=== PATIENT | female | born 1980 | race Caucasian/White ===

== ENCOUNTER 2018-11-04 10:13 | Emergency (ER) | payer OTHER ==
[~2018-11-04] VITALS: Ht 170.2 cm; Wt 69.8 kg
--- NOTE | 2018-11-04 10:58 | PHYS DOC ---
Past History Past Medical History: GERD, Hypothyroid, Other Additional Past Medical Histor: Shalini syndrome, diabetes insipidus Past Surgical History: Hysterectomy, Other Additional Past Surgical Histo: pituitary resection Smoking: Non-smoker Alcohol Use: None Drug Use: None Adult General Chief Complaint Chief Complaint: DIZZY/LIGHT HEADED HPI HPI Patient is a 38-year-old female presents with feeling weak, lightheaded, dizzy with standing up, generalized fatigue and malaise. 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 She had been on supplemental steroids up until April 2018. Approximately a week ago started feeling the fatigue and symptoms of adrenal insufficiency again and yesterday took 2-1/2 mg of hydrocortisone twice which did improve her symptoms. She recently moved here from [place]. 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 Symptoms are moderate in intensity. She denies any chest pain or palpitations. She reports her desmopressin is not working to help with her diabetes insipidus as well.[] Review of Systems Review of Systems Constitutional: Denies fever or chills [] Eyes: Denies change in visual acuity, redness, or eye pain [] HENT: Denies nasal congestion or sore throat [] Respiratory: Denies cough or shortness of breath [] Cardiovascular: No chest pain or palpitations[] GI: Denies abdominal pain, nausea, vomiting, bloody stools or diarrhea [] : Denies dysuria or hematuria [] Musculoskeletal: Denies back pain or joint pain [] Integument: Denies rash or skin lesions [] Neurologic: Denies headache, focal weakness or sensory changes [] Endocrine: Denies polyuria or polydipsia [] All other systems were reviewed and found to be within normal limits, except as documented in this note. Allergies Allergies Allergies Coded Allergies Type Severity Reaction Last Updated Verified hydromorphone Allergy Unknown Rash 11/04/18 Yes Physical Exam Physical Exam Constitutional: Well developed, well nourished, no acute distress, non-toxic appearance. [] HENT: Normocephalic, atraumatic, bilateral external ears normal, oropharynx moist, no oral exudates, nose normal. [] Eyes: PERRLA, EOMI, conjunctiva normal, no discharge. [] Neck: Normal range of motion, no tenderness, supple, no stridor. [] Cardiovascular:Heart rate regular rhythm, no murmur [] Lungs & Thorax: Bilateral breath sounds clear to auscultation [] Abdomen: Bowel sounds normal, soft, no tenderness, no masses, no pulsatile masses. [] Skin: Warm, dry, no erythema, no rash. Slightly darkened skin.[] Back: No tenderness, no CVA tenderness. [] Extremities: No tenderness, no cyanosis, no clubbing, ROM intact, no edema. [] Neurologic: Alert and oriented X 3, normal motor function, normal sensory function, no focal deficits noted. [] Psychologic: Affect normal, judgement normal, mood normal. [] Current Patient Data Vital Signs Vital Signs Date Time Temp Pulse Resp B/P (MAP) Pulse Ox O2 Delivery O2 Flow Rate FiO2 11/04/18 10:38 98.1 68 16 100 Room Air 11/04/18 10:32 120/83 (95) EKG EKG [] Radiology/Procedures Radiology/Procedures [] Course & Med Decision Making Course & Med Decision Making Pertinent Labs and Imaging studies reviewed. (See chart for details) ED course: Patient arrived, was placed in bed, and tolerated exam well. IV access was established and she was given IV fluids. She was additionally given IV steroids. As the return of the laboratory studies, these were discussed with the patient. She reported feeling better. Consultation was made with hospitalist service regarding appropriate dosing for outpatient steroid therapy. All questions were answered. She was discharged in improved condition. Medical decision making: Patient appears to have adrenal insufficiency is result of surgery for her Byers syndrome. This may been triggered by recent move from a more temperate environment in [place] to [place] where the temperatures lately have been in the 90s to 100s. There is no evidence of significant electrolyte abnormality. No anemia. No evidence of urinary tract infection.[] Dragon Disclaimer Dragon Disclaimer This electronic medical record was generated, in whole or in part, using a voice recognition dictation system. Departure Departure: Impression: Primary Impression: Adrenal insufficiency Disposition: HOME, SELF-CARE Condition: IMPROVED Referrals: KIMBERLY MCKEON (PCP) Keep Your appointment in 2 days Patient Instructions: [address]'s Disease, Adrenal Insufficiency Additional Instructions: Keep your appointment in 2 days. Return to the ER if worsening weakness or any other concerns. Scripts Hydrocortisone (HYDROCORTISONE) 10 Mg Tablet 10 MG PO as directed for adrenal insufficiency, #90 TAB 2 tablets at 8 AM every day 1 tablet at 4 PM every day Prov: DANISH FLORES DO 11/04/18 DANISH FLORES DO Nov 04, 2018 10:58
[2018-11-04] MEDS ORDERED: IV NORMAL SALINE 1,000ML 1,000 ML IV ONE (11:00)
[2018-11-04] MEDS ORDERED: HYDROCORTISONE SOD SUCC/PF 100 MG/2 ML VIAL. IV ONE (11:15)
[2018-11-04 11:27] LABS: BASO # 0.1 x10^3/uL (0.0-0.2); BASO % 2 % (0-3); EOS # 0.2 x10^3/uL (0.0-0.7); EOS % 3 % (0-3); HEMATOCRIT 41.2 % (36.0-47.0); HEMOGLOBIN 13.9 g/dL (12.0-15.5); LYMPH # 1.9 x10^3/uL (1.0-4.8); LYMPH % 42 % (24-48); MEAN CORPUSCULAR HEMOGLOBIN 31 pg (25-35); MEAN CORPUSCULAR HGB CONC 34 g/dL (31-37); MEAN CORPUSCULAR VOLUME 93 fL (79-100); MONO # 0.4 x10^3/uL (0.0-1.1); MONO % 8 % (0-9); NEUT # 2.1 x10^3uL (1.8-7.7); NEUT % 45 % (31-73); PLATELET COUNT 283 x10^3/uL (140-400); RED BLOOD COUNT 4.43 x10^6/uL (3.50-5.40); RED CELL DISTRIBUTION WIDTH 13.7 % (11.5-14.5); WHITE BLOOD COUNT 4.6 x10^3/uL (4.0-11.0)
[2018-11-04 11:45] LABS: ALBUMIN/GLOBULIN RATIO 1.1 (1.0-1.7); CREATININE 0.9 mg/dL (0.6-1.0); GFR 70.5; POTASSIUM 3.6 mmol/L (3.5-5.1); TOTAL BILIRUBIN 0.3 mg/dL (0.2-1.0); TOTAL PROTEIN 7.6 g/dL (6.4-8.2)
[2018-11-04 11:55] LABS: CLARITY,URINE HAZY; COLOR,URINE STRAW
[2018-11-04 11:56] LABS: BACTERIA,URINE 0 /HPF (0-FEW); BILIRUBIN,URINE NEG (NEG); GLUCOSE,URINE NEG (NEG); NITRITE,URINE NEG (NEG); RBC,URINE 0 /HPF (0-2); SQUAMOUS EPITHELIAL CELL,UR FEW /LPF; UROBILINOGEN,URINE 0.2 mg/dL (0.2 mg/dL); WBC,URINE RARE /HPF (0-4)
[2018-11-04 12:57] VITALS: BP 18/82
[2018-11-04] MEDS ORDERED: HYDR10TA66 PO (13:00)
== END 2018-11-04 13:10 | disposition home or self-care (01) ==
LOC: ER 10:13
DX: E27.40 Unspecified adrenocortical insufficiency (principal); K21.9 Gastro-esophageal reflux disease without esophagitis; E03.9 Hypothyroidism, unspecified; Z88.5 Allergy status to narcotic agent
CPT/HCPCS: 36415; 80053; 81001; 84146; 84443; 85025; 96374; 99284-25; J7030

== ENCOUNTER 2020-08-11 21:52 | Emergency (ER) | payer OTHER ==
[~2020-08-11] VITALS: Ht 170.2 cm; Wt 77.2 kg
[~2020-08-11 21:52] MED LIST: HYDR-3108 PO
[2020-08-11 23:48] VITALS: BP 118/79
[2020-08-12] MEDS ORDERED: HYDR-2759 PO (00:02)
== END 2020-08-12 00:17 | disposition home or self-care (01) ==
LOC: ER 21:52
DX: N13.2 Hydronephrosis with renal and ureteral calculous obstruction (principal); K21.9 Gastro-esophageal reflux disease without esophagitis; E03.9 Hypothyroidism, unspecified; Z87.442 Personal history of urinary calculi; Z90.710 Acquired absence of both cervix and uterus; Z88.5 Allergy status to narcotic agent
CPT/HCPCS: 36415; 74176; 80053; 81001; 85025; 96361; 96374; 96375; 99285; J2270; J2405; J7030

== ENCOUNTER 2020-08-14 11:13 | Emergency (ER) | payer OTHER ==
[~2020-08-14] VITALS: Ht 170.2 cm; Wt 79.0 kg
[~2020-08-14 11:13] MED LIST changes: +HYDR-2759 PO
[2020-08-14] MEDS ORDERED: KETOROLAC 30 MG/ML VIAL. IVP ONE (12:45)
[2020-08-14] MEDS ORDERED: MORPHINE SULFATE 2 MG/ML DISP.SYRIN. IV ONE (12:45)
[2020-08-14] MEDS ORDERED: IV NORMAL SALINE 1,000ML 1,000 ML IV ONE (12:45)
[2020-08-14] MEDS ORDERED: TAMSULOSIN 0.4 MG CAP.ER.24H. PO ONE (12:45)
[2020-08-14] MEDS ORDERED: KETOROLAC 30 MG/ML VIAL. ONE (12:50)
--- NOTE | 2020-08-14 12:54 | PHYS DOC ---
Past History Past Medical History: GERD, Hypothyroid, Kidney Stones, Other Additional Past Medical Histor: Shalini syndrome, diabetes insipidus Past Surgical History: Hysterectomy, Other Additional Past Surgical Histo: pituitary resection Smoking: Non-smoker Alcohol Use: None Drug Use: None Adult General Chief Complaint Chief Complaint: FLANK PAIN HPI HPI Patient is a 39-year-old female presents to the emergency department reporting ongoing right sided flank pain. Patient is reports her pain a 10/10 when 10 pain scale. Patient states she was diagnosed with a 4 mm stone in her distal ureter on 11 August 2020. Patient states she has been taking her pain medication as directed by the ED provider she seen on 11 August. Patient states she was unable to obtain an appointment with the urology specialist until today in which her referral "finally came through "and she is waiting to hear back from urology. Patient states she has diabetes insipidus and is worried that her urine has been decreasing since the diagnosis of her stone. Patient denies any nausea, vomiting, diarrhea, chest pain, shortness of breath. Patient states she feels pressure in her pelvic floor and thinks it is related to her kidney stone. Patient states she has a bladder sling and is worried that her stone will not be able to overcome the sling. Patient denies any recent fever or chills. Review of Systems Review of Systems 14 body systems of review of systems have been reviewed. See HPI for pertinent positives and negative responses, otherwise all other systems are negative, nonpertinent or noncontributory. Current Medications Current Medications Current Medications Medications (Trade) Dose Ordered Sig/Jv Start Time Stop Time Status Last Admin Dose Admin Ketorolac Tromethamine (Toradol 30mg Vial) 30 mg 1X ONCE 08/14/20 12:45 08/14/20 12:46 UNV Morphine Sulfate (Morphine 2mg Syringe) 2 mg 1X ONCE 08/14/20 12:45 08/14/20 12:46 UNV Sodium Chloride 1,000 ml @ 1,000 mls/hr 1X ONCE 08/14/20 12:45 08/14/20 13:44 UNV Tamsulosin HCl (Flomax) 0.4 mg 1X ONCE 08/14/20 12:45 08/14/20 12:46 UNV Allergies Allergies Allergies Coded Allergies Type Severity Reaction Last Updated Verified hydromorphone Allergy Unknown Rash 11/04/18 Yes Physical Exam Physical Exam Constitutional: Well developed, well nourished, no acute distress, non-toxic appearance. 39-year-old female no apparent distress. Patient's complaint of pain exceeds patient's physical appearance. HENT: Normocephalic, atraumatic, bilateral external ears normal, oropharynx moist, no oral exudates, nose normal. Eyes: PERRLA, EOMI, conjunctiva normal, no discharge. Neck: Normal range of motion, no tenderness, supple, no stridor. Cardiovascular:Heart rate regular rhythm, no murmur Lungs & Thorax: Bilateral breath sounds clear to auscultation Abdomen: Bowel sounds normal, soft, no tenderness, no masses, no pulsatile masses. Pain right flank. No bruising or areas of ecchymosis of the abdomen appreciated. Skin: Warm, dry, no erythema, no rash. Back: No tenderness, no CVA tenderness. Extremities: No tenderness, no cyanosis, no clubbing, ROM intact, no edema. Neurologic: Alert and oriented X 3, normal motor function, normal sensory function, no focal deficits noted. Psychologic: Affect normal, judgement normal, mood normal. Current Patient Data Vital Signs Vital Signs Date Time Temp Pulse Resp B/P (MAP) Pulse Ox O2 Delivery O2 Flow Rate FiO2 08/14/20 11:20 98.5 20 152/82 (105) Room Air EKG EKG [] Radiology/Procedures Radiology/Procedures [] Heart Score C/O Chest Pain: No Risk Factors: Risk Factors: DM, Current or recent (<one month) smoker, HTN, HLP, family history of CAD, obesity. Risk Scores: Risk Factors: DM, Current or recent (<one month) smoker, HTN, HLP, family history of CAD, obesity. Course & Med Decision Making Course & Med Decision Making Pertinent Labs and Imaging studies reviewed. (See chart for details) 39-year-old female, vital signs reviewed, presents emergency department concerning ongoing right flank pain that she feels is related to her 4 mm distal ureter stone on the right. Patient's physical examination consistent with right sided kidney stone. Reviewed report from ED visit on 08/11/2020, agreed with ED provider, physical examination unchanged from her visit on 11 August, review of patient's CT abdomen pelvis showed 4 mm stone in the right distal ureter. Will order UA to rule out urinary tract infection, CBC, CMP, will order 30 mg Toradol, 2 mg of morphine IV, 1 L normal saline, 0.4 mg p.o. Flomax. Patient amenable to this plan. Patient's serum labs unremarkable, patient's urinalysis consistent with ongoing kidney stone, reevaluation of the patient, patient in no apparent distress, patient states her pain has been resolved. Discussed with patient will prescribe Flomax to take in addition to her home medication regimen. Discussed with patient to follow-up with [facility] as directed, return to ER precautions and concerns. Patient is nontoxic in appearance. Patient gave verbal understanding of discharge home instructions, Flomax medication use, follow-up with [facility], return to ER precautions or co ncerns, patient was discharged home without incident. Dragon Disclaimer Dragon Disclaimer This electronic medical record was generated, in whole or in part, using a voice recognition dictation system. Departure Departure: Impression: Primary Impression: Acute flank pain Additional Impression: Kidney stone on right side Disposition: 01 HOME / SELF CARE / HOMELESS Condition: GOOD Referrals: KIMBERLY MCKEON (PCP) Patient Instructions: Kidney Stones Additional Instructions: You are seen today for ongoing symptoms of your right-sided kidney stone. Your urine did not show any signs of infection, your blood work was unremarkable and did not show any concerning findings that require admission to the hospital. Today you were given IV Toradol 30 mg, 2 mg IV morphine, and a 0.4 mg Flomax. As we discussed I am adding Flomax to your medication regimen at home to treat this kidney stone. You should take it 30 minutes after the same meal once a day. I am giving you 8 tablets, this should be sufficient to assist you in passing this kidney stone. Please keep your appointments with the nephrology department. Return to the emergency department for worsening symptoms or other concerns. EMERGENCY DEPARTMENT GENERAL DISCHARGE INSTRUCTIONS Thank you for coming to [facility] (ED) today and trusting us with you care. We trust that you had a positivie experience in our Emergency Department. If you wish to speak to the department management, you may call the director at [phone]. YOUR FOLLOW UP INSTRUCTIONS ARE FOLLOWS: 1. Do you have a private Doctor? If you do not have a private doctor, please ask for a resource list of physicians or clinics that may be able to assist you with follow up care. 2. The Emergency Physician has interpreted your x-rays. The X-Ray specialist will also review them. If there is a change in the findings, you will be notified in 48 hours when at all possible. 3. A lab test or culture has been done, your results will be reviewed and you will be notified if you need a change in treatment. ADDITIONAL INSTRUCTIONS AND INFORMATION: 1. Your care today has been supervised by a physician who is specially trained in emergency care. Many problems require more than one evaluation for a complete diagnosis and treatment. We recommend that you schedule your follow up appointment as recommended to ensure complete treatment of you illness or injury. If you are unable to obtain follow up care and continue to have a problem, or if your condition worsens, we recommend that you return to the ED. 2. We are not able to safely determine your condition over the phone nor are we able to give sound medical advice over the phone. For these safety reasons, if you call for medical advice we will ask you to come to the ED for further evaluation. 3. If you have any questions regarding these discharge instructions please call the ED at [phone]. SAFETY INFORMATION: In the interest of safety, wellness, and injury prevention; we encourage you to wear your sealbelt, if you smoke; quite smoking, and we encourage family to use a protective helmet for bicycling and other sporting events that present an increased risk for head injury. IF YOUR SYMPTOMS WORSEN OR NEW SYMPTOMS DEVELOP, OR YOU HAVE CONCERNS ABOUT YOUR CONDITION; OR IF YOUR CONDITION WORSENS WHILE YOU ARE WAITING FOR YOUR FOLLOW UP APPOINTMENT; EITHER CONTACT YOUR PRIMARY CARE DOCTOR, THE PHYSICIAN WHOSE NAME AND NUMBER YOU WERE GIVEN, OR RETURN TO THE ED IMMEDIATELY. Scripts Tamsulosin Hcl (FLOMAX) 0.4 Mg Cap.er.24h 1 CAP PO DAILY for KIDNEY STONE, #10 CAP 0 Refills Take 1 tablet once a day 30 minutes after the same meal each day. Prov: CHELO PAVON APRN 08/14/20 Problem Qualifiers CHELO PAVON APRN Aug 14, 2020 12:54
[2020-08-14 12:58] LABS: BASO # 0.1 x10^3/uL (0.0-0.2); BASO % 1 % (0-3); EOS # 0.2 x10^3/uL (0.0-0.7); EOS % 2 % (0-3); LYMPH # 2.2 x10^3/uL (1.0-4.8); LYMPH % 21 % (24-48); MEAN CORPUSCULAR HEMOGLOBIN 31 pg (25-35); MEAN CORPUSCULAR HGB CONC 33 g/dL (31-37); MEAN CORPUSCULAR VOLUME 93 fL (79-100); MONO # 0.6 x10^3/uL (0.0-1.1); MONO % 6 % (0-9); NEUT # 7.2 x10^3uL (1.8-7.7); NEUT % 70 % (31-73); PLATELET COUNT 300 x10^3/uL (140-400); RED BLOOD COUNT 4.21 x10^6/uL (3.50-5.40); RED CELL DISTRIBUTION WIDTH 12.8 % (11.5-14.5); WHITE BLOOD COUNT 10.2 x10^3/uL (4.0-11.0)
[2020-08-14 12:59] LABS: CALCIUM 8.6 mg/dL (8.5-10.1); GFR 62.1; POTASSIUM 3.6 mmol/L (3.5-5.1)
[2020-08-14 13:05] LABS: ALBUMIN 3.3 g/dL (3.4-5.0); ALBUMIN/GLOBULIN RATIO 0.9 (1.0-1.7); TOTAL BILIRUBIN 0.1 mg/dL (0.2-1.0); TOTAL PROTEIN 6.9 g/dL (6.4-8.2)
[2020-08-14 13:40] LABS: BILIRUBIN,URINE NEG (NEG); CLARITY,URINE CLEAR; COLOR,URINE YELLOW; GLUCOSE,URINE NEG (NEG)
[2020-08-14 13:41] LABS: NITRITE,URINE NEG (NEG); RBC,URINE >40 /HPF (0-2); UROBILINOGEN,URINE 0.2 mg/dL (0.2 mg/dL)
[2020-08-14 13:42] LABS: BACTERIA,URINE 0 /HPF (0-FEW); WBC,URINE RARE /HPF (0-4)
[2020-08-14 13:43] LABS: SQUAMOUS EPITHELIAL CELL,UR FEW /LPF
[2020-08-14] MEDS ORDERED: TAMS0.4C97 PO (14:05)
[2020-08-14 14:30] VITALS: BP 114/77
== END 2020-08-14 14:28 | disposition home or self-care (01) ==
LOC: ER 11:13
DX: N20.0 Calculus of kidney (principal); K21.9 Gastro-esophageal reflux disease without esophagitis; E03.9 Hypothyroidism, unspecified; Z90.710 Acquired absence of both cervix and uterus; Z88.5 Allergy status to narcotic agent
CPT/HCPCS: 36415; 80053; 81001; 85025; 96361; 96374; 96375; 99285; J1885; J2270; J7030

== ENCOUNTER 2020-10-15 13:17 | Emergency (ER) | payer OTHER ==
[~2020-10-15] VITALS: Ht 165.1 cm; Wt 80.0 kg
[~2020-10-15 13:17] MED LIST changes: +TAMS0.4C97 PO
[2020-10-15] MEDS ORDERED: ONDANSETRON PF 4 MG/2 ML VIAL. ONE (14:05)
[2020-10-15] MEDS: ONDANSETRON PF 4 MG/2 ML VIAL. IVP ONE (14:10)
[2020-10-15] MEDS: IV NORMAL SALINE 1,000ML 1,000 ML IV ONE (14:11)
[2020-10-15 14:36] LABS: BASO % 0 % (0-3); EOS # 0.1 x10^3/uL (0.0-0.7); EOS % 1 % (0-3); HEMATOCRIT 38.6 % (36.0-47.0); LYMPH % 24 % (24-48); MEAN CORPUSCULAR HEMOGLOBIN 31 pg (25-35); MEAN CORPUSCULAR HGB CONC 34 g/dL (31-37); MEAN CORPUSCULAR VOLUME 92 fL (79-100); MONO # 0.8 x10^3/uL (0.0-1.1); MONO % 7 % (0-9); NEUT # 8.5 x10^3uL (1.8-7.7); NEUT % 68 % (31-73); PLATELET COUNT 301 x10^3/uL (140-400); RED BLOOD COUNT 4.19 x10^6/uL (3.50-5.40); RED CELL DISTRIBUTION WIDTH 13.1 % (11.5-14.5); WHITE BLOOD COUNT 12.5 x10^3/uL (4.0-11.0)
[2020-10-15 14:42] LABS: CREATININE 0.9 mg/dL (0.6-1.0); GFR 69.7; POTASSIUM 3.8 mmol/L (3.5-5.1)
[2020-10-15 14:48] LABS: ALBUMIN 3.4 g/dL (3.4-5.0); ALBUMIN/GLOBULIN RATIO 0.9 (1.0-1.7); TOTAL BILIRUBIN 0.3 mg/dL (0.2-1.0)
[2020-10-15 14:50] LABS: CLARITY,URINE BLOODY; COLOR,URINE RED
[2020-10-15 14:54] LABS: RBC,URINE TNTC /HPF (0-2)
[2020-10-15 14:56] LABS: BACTERIA,URINE MOD /HPF (0-FEW); SQUAMOUS EPITHELIAL CELL,UR FEW /LPF; YEAST,URINE PRESENT /HPF
[2020-10-15 15:31] LABS: U PREG PATIENT NEGATIVE (NEG)
[2020-10-15] MEDS ORDERED: ONDA4TAB7 PO (15:43)
[2020-10-15] MEDS ORDERED: OXYC-325 PO (15:55)
--- NOTE | 2020-10-15 15:56 | PHYS DOC ---
Past History Past Medical History: GERD, Hypothyroid, Kidney Stones, Other Additional Past Medical Histor: Shalini syndrome, diabetes insipidus (LI GRIMES APRN) Past Surgical History: Hysterectomy, Other Additional Past Surgical Histo: pituitary resection (LI GRIMES APRN) Smoking: Non-smoker Alcohol Use: None Drug Use: None (LI GRIMES APRN) General Adult EDM: Chief Complaint: ABDOMINAL PAIN HPI: HPI: Patient is a 40-year-old female comes to the ER today for intractable nausea and vomiting that started yesterday. Patient reports that she was recently hospitalized at for kidney stones. She reports that she had a 14 mm stone removed and a urinary stent placed. She had some Zofran at home and she took that yesterday which did improve her nausea and vomiting but it worsened this afternoon around 1 PM. Patient reports that she was able to eat breakfast this morning. She has vomited 70 times she could not count. She denies any blood in her vomit. She does report some right flank and right sided abdominal pain following the procedure and hematuria. She denies any additional urinary comp laints such as frequency, urgency, dysuria. She also denies fevers, diarrhea, cp, soa. (LI GRIMES APRN) Review of Systems: Review of Systems: 14 body systems of the review of systems have been reviewed. See HPI for pertinent positive and negative responses, otherwise all other systems are negative, nonpertinent or noncontributory (LI GRIMES APRN) Current Medications: Current Meds: Current Medications Medications (Trade) Dose Ordered Sig/Jv Start Time Stop Time Status Last Admin Dose Admin Fentanyl Citrate (Fentanyl 2ml Vial) 50 mcg 1X ONCE 10/15/20 15:30 10/15/20 15:31 DC 10/15/20 15:34 50 MCG Ondansetron HCl (Zofran) 4 mg STK-MED ONCE 10/15/20 14:05 10/15/20 14:06 DC Sodium Chloride 1,000 ml @ 1,000 mls/hr 1X ONCE 10/15/20 14:15 10/15/20 15:14 DC 10/15/20 14:11 1,000 MLS/HR (LI GRIMES APRN) Allergies: Allergies: Allergies Coded Allergies Type Severity Reaction Last Updated Verified hydromorphone Allergy Unknown Rash 11/04/18 Yes (LI GRIMES APRN) Physical Exam: PE: Constitutional: Well developed, well nourished, no acute distress, non-toxic appearance. [] HENT: Normocephalic, atraumatic, bilateral external ears normal, oropharynx moist, nose normal. [] Eyes: PERRL, conjunctiva normal, no discharge. [] Neck: Normal range of motion, no stridor. [] Cardiovascular:Heart rate regular rhythm, no murmur [] Lungs & Thorax: Bilateral breath sounds clear to auscultation [] Abdomen: Bowel sounds normal, abdomen is mildly distended and is tender with palpation in the right upper and lower quadrant. [] Skin: Warm, dry, no erythema, no rash. [] Back: No tenderness, positive right CVA tenderness. [] Extremities: No tenderness, no cyanosis, no clubbing, ROM intact, no edema. [] Neurologic: Alert and oriented X 3, normal motor function, normal sensory function, no focal deficits noted. [] Psychologic: Affect normal, judgement normal, mood normal. [] (LI GRIMES APRN) Current Patient Data: Labs: Laboratory Tests Test 10/15/20 14:03 10/15/20 15:21 White Blood Count 12.5 x10^3/uL Red Blood Count 4.19 x10^6/uL Hemoglobin 13.0 g/dL Hematocrit 38.6 % Mean Corpuscular Volume 92 fL Mean Corpuscular Hemoglobin 31 pg Mean Corpuscular Hemoglobin Concent 34 g/dL Red Cell Distribution Width 13.1 % Platelet Count 301 x10^3/uL Neutrophils (%) (Auto) 68 % Lymphocytes (%) (Auto) 24 % Monocytes (%) (Auto) 7 % Eosinophils (%) (Auto) 1 % Basophils (%) (Auto) 0 % Neutrophils # (Auto) 8.5 x10^3uL Lymphocytes # (Auto) 3.0 x10^3/uL Monocytes # (Auto) 0.8 x10^3/uL Eosinophils # (Auto) 0.1 x10^3/uL Basophils # (Auto) 0.0 x10^3/uL Urine Collection Type Unknown Urine Color Red Urine Clarity Bloody Urine pH Urine Specific [place] Urine Protein Urine Glucose (UA) mg/dL Urine Ketones (Stick) mg/dL Urine Blood Urine Nitrite Urine Bilirubin Urine Urobilinogen Dipstick mg/dL Urine Leukocyte Esterase Urine RBC Tntc /HPF Urine WBC 1-4 /HPF Urine Squamous Epithelial Cells Few /LPF Urine Bacteria Mod /HPF Urine Yeast Present /HPF Sodium Level 130 mmol/L Potassium Level 3.8 mmol/L Chloride Level 96 mmol/L Carbon Dioxide Level 23 mmol/L Anion Gap 11 Blood Urea Nitrogen 16 mg/dL Creatinine 0.9 mg/dL Estimated GFR (Cockcroft-Gault) 69.7 BUN/Creatinine Ratio 18 Glucose Level 96 mg/dL Calcium Level 8.0 mg/dL Total Bilirubin 0.3 mg/dL Aspartate Amino Transf (AST/SGOT) 10 U/L Alanine Aminotransferase (ALT/SGPT) 21 U/L Alkaline Phosphatase 49 U/L Troponin I Quantitative < 0.017 ng/mL Total Protein 7.0 g/dL Albumin 3.4 g/dL Albumin/Globulin Ratio 0.9 Urine Test Negative Current Medications Medications (Trade) Dose Ordered Sig/Jv Route PRN Reason Start Time Stop Time Status Last Admin Dose Admin Ondansetron HCl (Zofran) 4 mg 1X ONCE IVP 10/15/20 14:15 10/15/20 14:16 DC 10/15/20 14:10 Sodium Chloride 1,000 ml @ 1,000 mls/hr 1X ONCE IV 10/15/20 14:15 10/15/20 15:14 DC 10/15/20 14:11 Fentanyl Citrate (Fentanyl 2ml Vial) 50 mcg 1X ONCE IVP 10/15/20 14:15 10/15/20 14:16 DC 10/15/20 14:11 Ondansetron HCl (Zofran) 4 mg STK-MED ONCE .ROUTE 10/15/20 14:05 10/15/20 14:06 DC Fentanyl Citrate (Fentanyl 2ml Vial) 50 mcg 1X ONCE IVP 10/15/20 15:30 10/15/20 15:31 DC 10/15/20 15:34 Laboratory Tests Test 10/15/20 14:03 10/15/20 15:21 White Blood Count 12.5 x10^3/uL (4.0-11.0) H Red Blood Count 4.19 x10^6/uL (3.50-5.40) Hemoglobin 13.0 g/dL (12.0-15.5) Hematocrit 38.6 % (36.0-47.0) Mean Corpuscular Volume 92 fL (79-100) Mean Corpuscular Hemoglobin 31 pg (25-35) Mean Corpuscular Hemoglobin Concent 34 g/dL (31-37) Red Cell Distribution Width 13.1 % (11.5-14.5) Platelet Count 301 x10^3/uL (140-400) Neutrophils (%) (Auto) 68 % (31-73) Lymphocytes (%) (Auto) 24 % (24-48) Monocytes (%) (Auto) 7 % (0-9) Eosinophils (%) (Auto) 1 % (0-3) Basophils (%) (Auto) 0 % (0-3) Neutrophils # (Auto) 8.5 x10^3uL (1.8-7.7) H Lymphocytes # (Auto) 3.0 x10^3/uL (1.0-4.8) Monocytes # (Auto) 0.8 x10^3/uL (0.0-1.1) Eosinophils # (Auto) 0.1 x10^3/uL (0.0-0.7) Basophils # (Auto) 0.0 x10^3/uL (0.0-0.2) Urine Collection Type Unknown Urine Color Red Urine Clarity Bloody Urine pH Urine Specific [place] Urine Protein (NEG-TRACE) Urine Glucose (UA) mg/dL (NEG) Urine Ketones (Stick) mg/dL (NEG) Urine Blood (NEG) Urine Nitrite (NEG) Urine Bilirubin (NEG) Urine Urobilinogen Dipstick mg/dL (0.2 mg/dL) Urine Leukocyte Esterase (NEG) Urine RBC Tntc /HPF (0-2) Urine WBC 1-4 /HPF (0-4) Urine Squamous Epithelial Cells Few /LPF Urine Bacteria Mod /HPF (0-FEW) Urine Yeast Present /HPF Sodium Level 130 mmol/L (136-145) L Potassium Level 3.8 mmol/L (3.5-5.1) Chloride Level 96 mmol/L (98-107) L Carbon Dioxide Level 23 mmol/L (21-32) Anion Gap 11 (6-14) Blood Urea Nitrogen 16 mg/dL (7-20) Creatinine 0.9 mg/dL (0.6-1.0) Estimated GFR (Cockcroft-Gault) 69.7 BUN/Creatinine Ratio 18 (6-20) Glucose Level 96 mg/dL (70-99) Calcium Level 8.0 mg/dL (8.5-10.1) L Total Bilirubin 0.3 mg/dL (0.2-1.0) Aspartate Amino Transferase (AST) 10 U/L (15-37) L Alanine Aminotransferase (ALT) 21 U/L (14-59) Alkaline Phosphatase 49 U/L (46-116) Troponin I Quantitative < 0.017 ng/mL (0-0.055) Total Protein 7.0 g/dL (6.4-8.2) Albumin 3.4 g/dL (3.4-5.0) Albumin/Globulin Ratio 0.9 (1.0-1.7) L Urine Test Negative (NEG) Vital Signs: Vital Signs Date Time Temp Pulse Resp B/P (MAP) Pulse Ox O2 Delivery O2 Flow Rate FiO2 10/15/20 15:34 18 100 Room Air 10/15/20 13:52 99.7 85 150/98 (LI GRIMES APRN) EKG: EKG: EKG was performed at 1431 shows sinus rhythm no STEMI read by Dr. Morrow (LI GRIMES APRN) Radiology/Procedures: Radiology/Procedures: [] (LI GRIMES APRN) Heart Score: C/O Chest Pain: No Risk Factors: Risk Factors: DM, Current or recent (<one month) smoker, HTN, HLP, family history of CAD, obesity. Risk Scores: Score 0 - 3: 2.5% MACE over next 6 weeks - Discharge Home Score 4 - 6: 20.3% MACE over next 6 weeks - Admit for Clinical Observation Score 7 - 10: 72.7% MACE over next 6 weeks - Early Invasive Strategies (LI GRIMES APRN) Course & Med Decision Making: Course & Med Decision Making Pertinent Labs and Imaging studies reviewed. (See chart for details) Patient is a 40-year-old female being seen for intractable nausea and vomiting that started yesterday. Patient is 2 days postop from after 14 mm stone was removed and a urinary stent placed. Patient was discharged home from with Alexey Abbott. Patient had mild leukocytosis, and a sodium of 130 and a chloride of 96. Her U a was too bloody to get a complete urinalysis. Patient had an EKG performed which showed a sinus rhythm with no STEMI. She was treated in the ER with 1 L of normal saline, 4 mg of Zofran for nausea, fentanyl for pain. Patient was educated on the need to continue the Cipro and the Percocet. Patient reports that she only has enough Percocet for today and will be discharged home with Percocet and a prescription for Zofran for nausea. Care and treatment plan discussed with patient she reports that she is feeling better and no longer nauseous following the administration of Zofran. Patient's case was discussed with supervising physician. (LI GRIMES APRN) Course & Med Decision Making I oversaw on the above date of service of this patient. This patient was evaluated, examined, treated, and dispositioned from the emergency department by the mid-level practitioner. I reviewed case with MAINTENANCE MANAGER and helped guide/oversee care of patient. Pain and symptoms improved with ER intervention, she was tolerating p.o. intake prior to departure. She is on necessary antibiotics, no indication for transfer for immediate urologic consultation and/or need for hospital admission at present given middle week in fact that patient has good o utpatient access to care with urology clinic. I reviewed note and agree to findings, plan of care, and disposition as stated. Electronically signed, Alvin Tenorio DO (ALVIN TENORIO DO) Mikey Disclaimer: Mikey Disclaimer: This electronic medical record was generated, in whole or in part, using a voice recognition dictation system. (LI GRIMES APRN) Departure Departure: Impression: Primary Impression: Nausea & vomiting Qualified Codes: R11.2 - Nausea with vomiting, unspecified Additional Impression: Post-op pain Disposition: HOME / SELF CARE / HOMELESS Condition: STABLE Referrals: KIMBERLY MCKEON (PCP) Patient Instructions: Nausea and Vomiting Additional Instructions: Thank you for choosing [facility] and allowing me to participate in your care. We have discussed your findings in the ER today. Your urine had a significant amount of blood in it which made it difficult to obtain a full urine report but you were discharged from with Cipro which is an antibiotic, continue taking the Cipro at home. You were treated in the ER with Zofran for nausea, fluids, and pain medicine.. As we have discussed, the treatment includes increasing fluids, Zofran, and pain medication previously prescribed. Please fo llow up with your primary care provider tomorrow regarding your ER visit. Please call [facility] tomorrow morning and notify them of your ER visit and follow-up with them as soon as possible. If your symptoms worsen or you develop pain with urination, inability to urinate, uncontrollable nausea or vomiting, severe abdominal pain, severe back pain, fevers, please return. EMERGENCY DEPARTMENT GENERAL DISCHARGE INSTRUCTIONS Thank you for coming to [facility] (ED) today and trusting us with you care. We trust that you had a positivie experience in our Emergency Department. If you wish to speak to the department management, you may call the director at [phone]. YOUR FOLLOW UP INSTRUCTIONS ARE FOLLOWS: 1. Do you have a private Doctor? If you do not have a private doctor, please ask for a resource list of physicians or clinics that may be able to assist you with follow up care. 2. The Emergency Physician has interpreted your x-rays. The X-Ray specialist will also review them. If there is a change in the findings, you will be notified in 48 hours when at all possible. 3. A lab test or culture has been done, your results will be reviewed and you will be notified if you need a change in treatment. ADDITIONAL INSTRUCTIONS AND INFORMATION: 1. Your care today has been supervised by a physician who is specially trained in emergency care. Many problems require more than one evaluation for a complete diagnosis and treatment. We recommend that you schedule your follow up appointment as recommended to ensure complete treatment of you illness or injury. If you are unable to obtain follow up care and continue to have a problem, or if your condition worsens, we recommend that you return to the ED. 2. We are not able to safely determine your condition over the phone nor are we able to give sound medical advice over the phone. For these safety reasons, if you call for medical advice we will ask you to come to the ED for further evaluation. 3. If you have any questions regarding these discharge instructions please call the ED at [phone]. SAFETY INFORMATION: In the interest of safety, wellness, and injury prevention; we encourage you to wear your sealbelt, if you smoke; quite smoking, and we encourage family to use a protective helmet for bicycling and other sporting events that present an increased risk for head injury. IF YOUR SYMPTOMS WORSEN OR NEW SYMPTOMS DEVELOP, OR YOU HAVE CONCERNS ABOUT YOUR CONDITION; OR IF YOUR CONDITION WORSENS WHILE YOU ARE WAITING FOR YOUR FOLLOW UP APPOINTMENT; EITHER CONTACT YOUR PRIMARY CARE DOCTOR, THE PHYSICIAN WHOSE NAME AND NUMBER YOU WERE GIVEN, OR RETURN TO THE ED IMMEDIATELY. Scripts Oxycodone HCl/Acetaminophen (Percocet 5-325 mg Tablet) 1 Each Tablet 1 TAB PO Q6HRS PRN for PAIN MDD 4 Tablet(s) for 1 Day, #4 TAB 0 Refills Prov: LI GRIMES APRN 10/15/20 Ondansetron Hcl (ZOFRAN) 4 Mg Tablet 1 TAB PO Q6HRS for nausea for 5 Days, #20 TAB 0 Refills Prov: LI GRIMES APRN 10/15/20 LI GRIMES APRN Oct 15, 2020 15:56 ALVIN TENORIO DO Oct 17, 2020 06:01
[2020-10-15 16:03] VITALS: BP 122/77
--- NOTE | 2020-10-15 20:22 | EKG ---
[address] [address] Test Date: 2020-10-15 Test Time: 14:31:44 Pat Name: SWATHI JONES Department: Room: Gender: F Electronic [employer]: BART : 1980 Requested By: ALVIN TENORIO Order Number: [id number] Reading MD: Measurements Intervals [place] Rate: 70 P: 31 IN: 146 QRS: 15 QRSD: 88 T: 19 QT: 376 QTc: 409 Interpretive Statements SINUS RHYTHM NORMAL ECG RI6.02 No previous ECG available for comparison
== END 2020-10-15 16:05 | disposition home or self-care (01) ==
LOC: ER 13:17
DX: R11.2 Nausea with vomiting, unspecified (principal); G89.18 Other acute postprocedural pain; K21.9 Gastro-esophageal reflux disease without esophagitis; Z32.02 Encounter for pregnancy test, result negative; Z87.442 Personal history of urinary calculi; Z90.710 Acquired absence of both cervix and uterus
CPT/HCPCS: 36415; 80053; 81001; 81025; 84484; 85025; 87086; 93005; 96361; 96374; 96375; 96376; 99284; J2405; J3010; J7030

== ENCOUNTER → 2020-11-12 | Outpatient (CLI) | payer OTHER ==
[2020-10-15 16:03] VITALS: BP 122/77
[~2020-11-12] MED LIST changes: +ONDA4TAB7 PO; +OXYC-325 PO
--- NOTE | 2020-11-12 09:07 | RAD ---
EXAM: CT Abdomen and Pelvis without IV contrast CLINICAL HISTORY: Reason: R FLANK PAIN HX OF KIDNEY STONE, HX OF STENT ON RIGHT SIDE / Spl. Instructi ons: / History: . COMPARISON: none TECHNIQUE: Helical CT of the abdomen and pelvis without intravenous contrast. Axial, coronal and sagi ttal reformatted images were generated. PQRS compliance statement - One or more of the following individualized dose reduction techniques wer e utilized for this study: 1. Automated exposure control 2. Adjustment of the mA and/or kV according to patient size 3. Use of iterative reconstruction technique FINDINGS: Lack of intravenous contrast limits evaluation of solid organs, vasculature, and lymph nodes. Lower chest: Lung bases are clear. Abdomen and Pelvis: Subcentimeter hypodense left hepatic lobe lesion is too small to accurately characterize. Gallbladder , pancreas, spleen and adrenal glands are unremarkable. Multiple bilateral renal calculi are seen. In the lower pole the right kidney a a few punctate calcul i are seen. In the left upper pole a 10 mm calculus is seen. Additional smaller left renal calculi ar e noted. No ureteral or bladder calculi are seen. Moderate colonic stool content is seen. Appendix is normal. No small or large bowel dilatation. No bowel obstruction. No abdominal or pelvic ascites. No abdominal or pelvic lymphadenopathy. Bladder is grossly unremarkab le. Trace fat-containing periumbilical hernia. Aorta is normal in caliber. No aggressive osseous lesion is seen. Sclerotic focus right iliac bone, bone island. IMPRESSION: Multiple bilateral nonobstructing renal calculi are seen. No ureteral or bladder calculi. Electronically signed by: Ramses Vital MD (11/12/2020 9:05 AM) [id number]
== END ==
LOC: CT 07:51
PROVIDERS: ATTEND Family Medicine
DX: N20.0 Calculus of kidney (principal)
CPT/HCPCS: 74176